=== PATIENT | female | born 1980 | race Caucasian/White ===

== ENCOUNTER 2024-12-12 13:32 | Outpatient (REF) | payer MEDICAID, SELFPAY ==
--- NOTE | 2024-12-12 11:15 | PAPFT_PTH ---
PATIENT: Susanna Coronado LOC: [facility] U#:[id number] AGE/SX: 44/F ROOM: RE12/12/[address]: JIGNESH: 1980 BED: DIS: 12/12/2024 SPEC #: [id number] RECD: 12/15/24 17:40 STATUS: JOSE EDUARDO MYLES #: [id number] JULIANO: 12/12/24 11:[address]: Meredith Van DEPT: [facility] Cytology RECD BY: Berenice Burton ENTERED: 12/15/24 17:40 SP TYPE: PAPFT OTHR DR: Unknown,Unknown Tissues: 1 - CX/ENDOCX FOR PAP SMEARS Procedures: PAP THIN PREP/[facility] Screening HPV DNA PROBE Comments: [id number] (HPV 16 & 18/45) (CHLAMYDIA/GC)
[2024-12-12 15:12] LABS: HCT 42.1 % (36.0-46.0); HGB 13.9 g/dL (11.2-15.7); MCH 29.9 pg (27.0-33.0); MCV 91 fL (80-95); MPV 12.6 fL (8.0-11.0); Platelet Count 249 10^3/uL (130-400); RBC 4.65 10^6/uL (3.93-5.22); RDW 12.6 % (11.7-14.6); RDW-SD 41.9 fL; WBC 6.22 10^3/uL (4.4-10.8)
[2024-12-12 15:44] LABS: ALT 86 U/L (14-59); AST 50 U/L (15-37); Albumin 4.2 g/dL (3.4-5.0); Alkaline Phosphatase 89 U/L (46-116); Anion Gap 8.1 mmol/L (3-11); BUN 16 mg/dL (7-18); Bilirubin, Total 0.4 mg/dL (0.2-1.0); CO2 27.9 mmol/L (21.0-32.0); CREATININE 0.8 mg/dL (0.55-1.02); Calcium 9.5 mg/dL (8.5-10.1); Calculated LDL 175 mg/dL (<100); Chloride 101 mmol/L (98-107); Cholesterol 259 mg/dL (<200); Glucose 117 mg/dL (74-106); HDL Cholesterol 66 mg/dL (>or=50); Potassium 4.7 mmol/L (3.5-5.1); Sodium 137 mmol/L (136-145); Total Protein 8.4 g/dL (6.4-8.2); Triglyceride 90 mg/dL (<150)
[2024-12-16 12:30] LABS: Chlamydia Result Negative (Negative); GC Result Negative (Negative)
== END 2024-12-12 13:33 | disposition home or self-care (01) ==
LOC: NCHCN 13:32
PROVIDERS: Visit Provider Family Medicine
DX: Z86.2 Personal history of diseases of the blood and blood-forming organs and certain disorders involving the immune mechanism (principal); Z13.220 Encounter for screening for lipoid disorders; Z13.228 Encounter for screening for other metabolic disorders
CPT/HCPCS: 80053; 80061; 85027; 87491; 87591; 88142; 87624

== ENCOUNTER 2025-03-16 13:37 | Outpatient (REF) | payer MEDICAID, SELFPAY ==
[2025-03-16 16:20] LABS: ALT 23 U/L (14-59); AST 21 U/L (15-37); Albumin 3.9 g/dL (3.4-5.0); Alkaline Phosphatase 62 U/L (46-116); Anion Gap 5.3 mmol/L (3-11); BUN 9 mg/dL (7-18); Bilirubin, Total 0.3 mg/dL (0.2-1.0); CO2 28.7 mmol/L (21.0-32.0); Calcium 9.0 mg/dL (8.5-10.1); Chloride 105 mmol/L (98-107); Estimated GFR 93.70 (mL/min/1.73m2); Glucose 96 mg/dL (74-106); Potassium 4.2 mmol/L (3.5-5.1); Sodium 139 mmol/L (136-145); Total Protein 7.6 g/dL (6.4-8.2)
[2025-03-16 16:28] LABS: Hemoglobin A1C 5.3 % (<5.7)
== END 2025-03-16 13:38 | disposition home or self-care (01) ==
LOC: NCHCN 13:37
PROVIDERS: PCP Family Medicine; Visit Provider Family Medicine
DX: R79.89 Other specified abnormal findings of blood chemistry (principal); R73.09 Other abnormal glucose
CPT/HCPCS: 80053; 83036